=== PATIENT | female | born 1945 | race Caucasian/White ===

== ENCOUNTER 2018-12-09 09:05 | Outpatient (CLI) | payer MEDICARE ==
--- NOTE | 2018-12-09 10:05 | ULT ---
FThyroid ultrasound: 12/09/2018 HISTORY: Abnormal PET scan, thyroid abnormality TECHNIQUE: Multiplanar scale sonographic imaging of the thyroid gland obtained FINDINGS: Thyroid isthmus measures 3 mm in AP dimension. Left lobe measures 4.7 x 3.5 x 2.8 cm. Right lobe measures 3.8 x 1.7 x 1.5 cm. No nodule noted in the thyroid isthmus or the right lobe. There is a heterogeneously hypoechoic dominant solid lesion within the mid left lobe of the thyroid gland jai suring 3.1 x 2.4 cm. IMPRESSION: TI-RADS 4-moderately suspicious. Dominant nodule in mid left lobe for which fine-needle a spiration advised given size.
== END 2018-12-09 09:06 | disposition home or self-care (01) ==
LOC: MADULT 09:05
PROVIDERS: ATTEND Family Medicine
DX: E07.9 Disorder of thyroid, unspecified (principal); E04.1 Nontoxic single thyroid nodule
CPT/HCPCS: 76536

== ENCOUNTER 2020-08-13 16:25 | Emergency (ER) | payer MEDICARE ==
--- NOTE | 2020-08-13 16:56 | RAD ---
Exam:2 views left forearm HISTORY: Fall. Pain. COMPARISON: None FINDINGS: Nondisplaced distal radius fracture and nondisplaced distal ulnar fracture. Associated defo rmity and soft tissue swelling. IMPRESSION: Distal radius and ulna fractures. Dedicated wrist radiograph series is recommended.
--- NOTE | 2020-08-13 17:14 | RAD ---
Exam:Left wrist 3 views HISTORY: Trauma. Pain. COMPARISON: None FINDINGS: There are degenerative changes involving the first carpometacarpal joint space Intercarpal and radiocarpal joint spaces are preserved No carpal bone fracture There is a minimally displaced distal ulnar fracture. No evidence of a radius fracture. There is soft tissue swelling involving the distal forearm. Dedicated view of the scaphoid bone does not demonstrate any obvious scaphoid bone fracture. There do es appear to be some sclerosis and subchondral lucency suggesting degenerative change. There is narrowing of the scaphoid trapezium joint space. IMPRESSION: 1. Distal radius fracture 2. No evidence of scaphoid bone injury. Correlate for point tenderness. There are degenerative change s in the scaphoid bone as well as the articulation of the scaphoid bone and trapezium. Transcribed Date/Time: 08/13/2020 5:21 PM
== END 2020-08-13 17:26 | disposition home or self-care (01) ==
LOC: MADERS 16:25
DX: S52.502A Unspecified fracture of the lower end of left radius, initial encounter for closed fracture (principal); S52.602A Unspecified fracture of lower end of left ulna, initial encounter for closed fracture; E11.9 Type 2 diabetes mellitus without complications; E78.5 Hyperlipidemia, unspecified; E78.00 Pure hypercholesterolemia, unspecified; I10 Essential (primary) hypertension; Z79.84 Long term (current) use of oral hypoglycemic drugs; Z79.899 Other long term (current) drug therapy; W10.9XXA Fall (on) (from) unspecified stairs and steps, initial encounter
CPT/HCPCS: 25560

== ENCOUNTER 2020-12-04 10:04 | Emergency (ER) | payer MEDICARE ==
[2020-12-04] MEDS ORDERED: Morphine 4 MG/ML VIAL ONE ×2 (10:25→14:47)
[2020-12-04] MEDS ORDERED: Ondansetron PF 4 MG/2 ML Vial ONE (10:25)
[2020-12-04 11:24] LABS: #Basophils 0.2 thou/uL (0.0-0.2); #Eosinphils 0.1 thou/uL (0.0-0.7); #Lymphocytes 1.2 thou/uL (1.20-3.40); #Monocytes 0.6 thou/uL (0.11-0.59); %Basophils 1.3 % (0.0-1.0); %Eosinophils 0.9 % (0.0-10.0); %Lymphocytes 9.2 % (21.0-51.0); %Monocytes 4.8 % (0.0-10.0); %Neutrophils 83.9 % (42.0-75.0); Hemoglobin 13.8 g/dL (12.0-16.0); Mean Corpuscular HGB CONC 31.4 g/dL (32.0-36.0); Mean Corpuscular Hemoglobin 26.9 pg (27.0-31.0); Mean Corpuscular Volume 85.8 fL (78.0-98.0); Mean Platelet Volume 6.3 fL (7.4-10.4); Platelet Count 291 thou/uL (130-400); RBC Distribution Width 11.6 % (11.5-14.5); Red Blood Cell (RBC) Count 5.12 mill/uL (4.20-5.40); White Blood Cell (WBC) Count 13.2 thou/uL (4.8-10.8)
[2020-12-04 11:31] LABS: INR-International Normal Ratio 0.9; Prothrombin Time 12.7 sec (12.0-14.7)
[2020-12-04 11:32] LABS: PTT 33.2 sec (22.9-36.1)
[2020-12-04 11:50] LABS: ALT (SGPT) 21 U/L (8-55); AST (SGOT) 22 U/L (5-34); Alkaline Phosphatase 101 U/L (40-110); Anion Gap 14 mmol/L (10-20); BUN (Urea Nitrogen) 16 mg/dL (9.8-20.1); Bilirubin, Total 0.6 mg/dL (0.2-1.2); Calc. Creatinine Clearance 0 mL/min (70-130); Calcium 9.9 mg/dL (7.8-10.44); Carbon Dioxide 30 mmol/L (23-31); Chloride 104 mmol/L (98-107); Globulin 2.8 g/dL (2.4-3.5); Glucose 109 mg/dL (83-110); Potassium 4.6 mmol/L (3.5-5.1); Protein, Total 6.8 g/dL (5.8-8.1); Sodium 143 mmol/L (136-145)
== END 2020-12-04 15:00 | disposition short-term general hospital (02) ==
LOC: MADERS 10:04
DX: S32.10XA Unspecified fracture of sacrum, initial encounter for closed fracture (principal); S32.82XA Multiple fractures of pelvis without disruption of pelvic ring, initial encounter for closed fracture; E11.9 Type 2 diabetes mellitus without complications; E78.5 Hyperlipidemia, unspecified; E78.00 Pure hypercholesterolemia, unspecified; I10 Essential (primary) hypertension; Z79.84 Long term (current) use of oral hypoglycemic drugs; Z79.899 Other long term (current) drug therapy; W18.30XA Fall on same level, unspecified, initial encounter
CPT/HCPCS: 71045; 72192; 80053; 84484; 85025; 85610; 85730; 86850; 86900; 86901; 93005; 94760; 96374; 96375; 96376; J2270; J2405

== ENCOUNTER 2021-01-10 20:27 | Emergency (ER) | payer MEDICARE ==
[2021-01-10 21:47] LABS: Bilirubin Negative (Negative); Blood, Urine Negative (Negative); Clarity Clear (Clear); Glucose, Urine (Dipstick) Negative (Negative); Ketone, Urine Negative (Negative); Leukocyte Negative (Negative); Nitrite Negative (Negative); Protein, Urine (Dipstick) Negative (Neg-Trace); Urobilinogen 0.2 mg/dL (Less than 2)
[2021-01-10] MEDS ORDERED: Cipro 250 MG TAB ONE (21:51)
== END 2021-01-10 22:08 | disposition home or self-care (01) ==
LOC: MADERS 20:27
DX: N30.01 Acute cystitis with hematuria (principal); R26.9 Unspecified abnormalities of gait and mobility; E11.9 Type 2 diabetes mellitus without complications; E78.5 Hyperlipidemia, unspecified; I10 Essential (primary) hypertension; E78.00 Pure hypercholesterolemia, unspecified; Z79.84 Long term (current) use of oral hypoglycemic drugs; Z79.899 Other long term (current) drug therapy
CPT/HCPCS: 81003; 87086; 99283

== ENCOUNTER 2021-02-07 04:43 | Emergency (ER) | payer MEDICARE ==
[2021-02-07 05:32] LABS: Bilirubin Negative (Negative); Blood, Urine Large (Negative); Clarity Cloudy (Clear); Glucose, Urine (Dipstick) Negative (Negative); Ketone, Urine Negative (Negative); Leukocyte Large (Negative); Nitrite Negative (Negative); Protein, Urine (Dipstick) 30 mg/dL (Neg-Trace); Specific Gravity, Urine 1.015 (1.005-1.030); pH, Urine 8.5 (5.0-9.0)
[2021-02-07 05:37] LABS: Bacteria/HPF 2+ HPF (None Seen); RBC/HPF Greater than 50 HPF (0-3); WBC/HPF Greater than 50 HPF (0-3)
== END 2021-02-07 05:46 | disposition home or self-care (01) ==
LOC: MADERS 04:43
DX: N39.0 Urinary tract infection, site not specified (principal); E11.9 Type 2 diabetes mellitus without complications; I10 Essential (primary) hypertension; E78.5 Hyperlipidemia, unspecified; Z79.899 Other long term (current) drug therapy; Z79.84 Long term (current) use of oral hypoglycemic drugs
CPT/HCPCS: 81003; 81015; 87086; 99283

== ENCOUNTER 2022-01-12 13:53 | Emergency (ER) | payer OTHER, MEDICARE | END 2022-01-12 14:56 | disposition home or self-care (01) | LOC: MADERS 13:53 | DX: S29.011A Strain of muscle and tendon of front wall of thorax, initial encounter (principal); E11.9 Type 2 diabetes mellitus without complications; I10 Essential (primary) hypertension; E78.5 Hyperlipidemia, unspecified; W18.09XA Striking against other object with subsequent fall, initial encounter; Y92.22 Religious institution as the place of occurrence of the external cause ==

== ENCOUNTER 2022-10-19 14:20 | Emergency (ER) | payer MEDICARE ==
[2022-10-19] MEDS ORDERED: Ipratropium/Albuterol 3 ML NEB ONE (14:56)
== END 2022-10-19 15:42 | disposition home or self-care (01) ==
LOC: MADERS 14:20
DX: R06.02 Shortness of breath (principal); I45.10 Unspecified right bundle-branch block; I10 Essential (primary) hypertension; E78.00 Pure hypercholesterolemia, unspecified; J44.9 Chronic obstructive pulmonary disease, unspecified; Z85.118 Personal history of other malignant neoplasm of bronchus and lung; Z79.84 Long term (current) use of oral hypoglycemic drugs; Z79.899 Other long term (current) drug therapy
CPT/HCPCS: 71045; 93005; J7620

== ENCOUNTER 2023-09-05 16:53 | Emergency (ER) | payer MEDICARE ==
[2023-09-05 17:55] LABS: Hematocrit 36.4 % (36.0-47.0); Hemoglobin 11.5 g/dL (12.0-16.0); Lymphocytes 6 % (21-51); MDiff Complete? YES; Manual Diff?? YES; Mean Corpuscular HGB CONC 31.7 g/dL (32.0-36.0); Mean Corpuscular Hemoglobin 27.1 pg (27.0-31.0); Mean Corpuscular Volume 85.6 fl (78.0-98.0); Mean Platelet Volume 7.2 fL (7.4-10.4); Monocytes 9 % (0-10); Neutrophil 84 % (42-75); Platelet Count 298 10x3/uL (130-400); RBC Distribution Width 13.3 % (11.5-14.5); Red Blood Cell (RBC) Count 4.25 mill/uL (4.20-5.40); White Blood Cell (WBC) Count 9.4 10x3/uL (4.8-10.8)
[2023-09-05 17:56] LABS: Platelet Adequacy Comment Appears Adequate; Reactive Lymphocytes 1 % (0-10)
[2023-09-05 17:58] LABS: ALT (SGPT) 7 U/L (8-55); AST (SGOT) 13 U/L (5-34); Albumin 3.6 g/dL (3.4-4.8); Alkaline Phosphatase 81 U/L (40-110); Anion Gap 17 mmol/L (10-20); BUN (Urea Nitrogen) 12 mg/dL (9.8-20.1); Bilirubin, Total 0.8 mg/dL (0.2-1.2); Calc. Creatinine Clearance 0 mL/min (70-130); Carbon Dioxide 23 mmol/L (23-31); Chloride 100 mmol/L (98-107); Estimated GFR 51; Globulin 3.2 g/dL (2.4-3.5); Glucose 108 mg/dL (83-110); Lipase 21 U/L (8-78); Potassium 3.8 mmol/L (3.5-5.1); Protein, Total 6.8 g/dL (5.8-8.1); Sodium 136 mmol/L (136-145)
[2023-09-05 18:04] LABS: SARS-CoV-2 NAA Rapid Test Not Detected (NotDetected)
[2023-09-05 18:32] LABS: Bilirubin Small (Negative); Blood, Urine Small (Negative); Clarity Cloudy (Clear); Glucose, Urine (Dipstick) Negative (Negative); Ketone, Urine Trace mg/dL (Negative); Leukocyte Large (Negative); Nitrite Negative (Negative); Protein, Urine (Dipstick) 100 mg/dL (Neg-Trace); Specific Gravity, Urine 1.015 (1.005-1.030); pH, Urine 5.5 (5.0-9.0)
[2023-09-05 18:38] LABS: Bacteria/HPF 1+ HPF (None Seen); CAUTI Indications for Culture Pelvic or flank pain; WBC/HPF Greater Than 50 HPF (0-3)
[2023-09-05 18:39] LABS: Urine Culture Reflex Yes Yes
== END 2023-09-05 19:00 | disposition home or self-care (01) ==
LOC: MADERS 16:53
DX: N39.0 Urinary tract infection, site not specified (principal); E11.9 Type 2 diabetes mellitus without complications; E78.5 Hyperlipidemia, unspecified; I10 Essential (primary) hypertension; Z79.84 Long term (current) use of oral hypoglycemic drugs; Z79.899 Other long term (current) drug therapy
CPT/HCPCS: 0240U; 71046; 80053; 81001; 83690; 85025; 87077; 87086; 87186; 99284; 36415

== ENCOUNTER 2024-09-20 09:30 | Emergency (ER) | payer MEDICARE | END 2024-09-20 10:39 | disposition home or self-care (01) | LOC: MADERS 09:30 | DX: S20.212A Contusion of left front wall of thorax, initial encounter (principal); R91.1 Solitary pulmonary nodule; J44.9 Chronic obstructive pulmonary disease, unspecified; E11.9 Type 2 diabetes mellitus without complications; I10 Essential (primary) hypertension; Z79.84 Long term (current) use of oral hypoglycemic drugs; Z87.891 Personal history of nicotine dependence; Z79.899 Other long term (current) drug therapy; W19.XXXA Unspecified fall, initial encounter | CPT/HCPCS: 99283 ==

== ENCOUNTER 2025-07-14 20:09 | Emergency (ER) | payer MEDICARE ==
[2025-07-14] MEDS ORDERED: Acetaminophen 500 MG TAB ONE (22:18)
== END 2025-07-14 22:25 | disposition home or self-care (01) ==
LOC: MADERS 20:09
DX: S52.611A Displaced fracture of right ulna styloid process, initial encounter for closed fracture (principal); E11.9 Type 2 diabetes mellitus without complications; I10 Essential (primary) hypertension; J44.9 Chronic obstructive pulmonary disease, unspecified; Z87.891 Personal history of nicotine dependence; W18.30XA Fall on same level, unspecified, initial encounter; Y93.01 Activity, walking, marching and hiking
CPT/HCPCS: 29125; 99283